=== PATIENT | male | born 1995 | race Caucasian/White ===

== ENCOUNTER 2019-08-19 | Emergency (ER) | payer SELFPAY ==
[2019-08-19] MEDS ORDERED: AMOXICILLIN500 MG PO (19:26)
[2019-08-19] MEDS ORDERED: ONDANSETRON4 MG PO ×2 (19:26)
== END 2019-08-19 20:45 | disposition home or self-care (01) | DRG 153 ==
DX: J02.9 Acute pharyngitis, unspecified (principal); Z20.89 Contact with and (suspected) exposure to other communicable diseases

== ENCOUNTER 2020-02-02 10:17 | Emergency (ER) | payer SELFPAY ==
[~2020-02-02] VITALS: Ht 172.7 cm; Wt 68.2 kg
[~2020-02-02 10:17] MED LIST: AMOXICILLIN500 MG PO; ONDANSETRON4 MG PO
[2020-02-02 10:47] LABS: HEMATOCRIT 46.1 % (39.0-50.0); HEMOGLOBIN 15.2 g/dl (14.0-18.0); IMMATURE GRANULOCYTES 0.2 % (0.0-5.0); MEAN CELL VOLUME 90.4 fL CALC (80.0-100.0); MEAN CORPUSCULAR HGB 29.8 pG CALC (26.0-32.0); NEUT# 2.56 thou/uL (1.82-7.42); RED BLOOD COUNT 5.1 mill/uL (4.70-6.10); RED CELL DISTRI WIDTH 13.3 % (11.5-15.5)
[2020-02-02 10:59] LABS: ANION GAP 15 (6-22 (CALC)); BUN 16 mg/dL (9-20); BUN/CREATININE RATIO 15 (12-20 (CALC)); CARBON DIOXIDE 28 mmol/l (22-30); CHLORIDE 101 mmol/l (95-108); CREATININE 1.1 mg/dL (0.7-1.3); GFR > 60 ML/MIN (>=60 (CALC)); GFR FOR AFR.AMER. > 60 ML/MIN (>=60 (CALC)); POTASSIUM 4.7 mmol/l (3.5-5.1); SODIUM 139 mmol/l (137-146)
[2020-02-02 12:24] VITALS: BP 108/56
== END 2020-02-02 12:24 | disposition home or self-care (01) | DRG 103 ==
LOC: ED 10:17
PROVIDERS: Family Medicine
DX: R51 Headache (principal)

== ENCOUNTER 2021-08-14 05:55 | Emergency (ER) | payer SELFPAY ==
[~2021-08-14] VITALS: Ht 172.7 cm; Wt 68.0 kg
[2021-08-14 06:06] VITALS: BP 113/75
[2021-08-14] MEDS ORDERED: NAPROXEN500 MG PO (06:24)
[2021-08-14 06:37] VITALS: BP 113/75
== END 2021-08-14 06:37 | disposition home or self-care (01) | DRG 563 ==
LOC: ED 05:55
DX: S53.401A Unspecified sprain of right elbow, initial encounter (principal); X50.0XXA Overexertion from strenuous movement or load, initial encounter

== ENCOUNTER 2021-11-15 00:53 | Emergency (ER) | payer SELFPAY ==
[~2021-11-15] VITALS: Ht 172.7 cm; Wt 70.0 kg
[~2021-11-15 00:53] MED LIST changes: +NAPROXEN500 MG PO
[2021-11-15 00:57] VITALS: BP 118/75
[2021-11-15 01:00] VITALS: BP 108/60
[2021-11-15] MEDS ORDERED: STERAPRED DS10 MG PO (01:08)
[2021-11-15 01:24] VITALS: BP 108/60
== END 2021-11-15 01:30 | disposition home or self-care (01) | DRG 607 ==
LOC: ED 00:53
DX: L50.9 Urticaria, unspecified (principal)